=== PATIENT | male | born 1975 | race Caucasian/White ===

== ENCOUNTER → 2023-08-06 06:20 | Day surgery (SDC) | payer OTHER, SELFPAY | LOC: GI 06:20 | PROVIDERS: ATTENDING PHYSICIAN Surgery | DX: Z12.11 Encounter for screening for malignant neoplasm of colon (principal); K64.9 Unspecified hemorrhoids; D12.5 Benign neoplasm of sigmoid colon; Z80.0 Family history of malignant neoplasm of digestive organs | CPT/HCPCS: 45380; 46221; 88305 ==

== ENCOUNTER → 2023-12-12 07:30 | Outpatient (REF) | payer OTHER, SELFPAY | LOC: CLAB 07:30 | PROVIDERS: ATTENDING PHYSICIAN Surgery | DX: K64.2 Third degree hemorrhoids (principal) | CPT/HCPCS: 88304 ==